=== PATIENT | female | born 1985 | race Caucasian/White ===

== ENCOUNTER 2024-09-04 12:17 | Emergency (ER) | payer BC, SELFPAY ==
[2024-09-04 12:24] VITALS: BP 146/84; PULSE 85; RESP 18; TEMP 37.1; O2SAT 98
--- NOTE | 2024-09-04 12:40 | ED.GENADULT ---
HPI - General Adult General Chief complaint: Abdominal Pain Stated complaint: Abdominal pain Time Seen by Provider: 09/04/24 12:19 Source: patient Mode of arrival: ambulatory Limitations: no limitations History of Present Illness HPI narrative: 39-year-old female presenting today with abdominal pain for 2 months. Patient is located in the epigastric region does not radiate. The pain is constant all day long. It makes her have a slightly decreased appetite. But she continues to eat regularly. She denies any weight loss. The pain generally does not get worse after she eats but she does continue to feel significant discomfort all day long. She has 1 loose stool daily. No urinary symptoms such as increased frequency, urgency or dysuria. She denies any fevers or chills. She denies any epigastric bloating. She states that she vomits a small amount of bile on most mornings because she feels quite nauseated when she wakes up. She describes burning in her chest throughout the day and a sore throat in the morning. The patient does drink 10 beers per day. Drinks 1 large cup of coffee in the morning and decaffeinated bubble water in the afternoon. Denies any tobacco use. 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 Past medical history significant for rheumatoid arthritis and anxiety. Past surgical history significant for a tonsillectomy. Related Data Home Medications ?Medication ?Instructions ?Recorded ?Confirmed etanercept 25 mg/0.5 mL 25 mg subcut QWEEK 02/09/23 09/04/24 subcutaneous solution (Enbrel) cholecalciferol (vitamin D3) 25 25 mcg PO DAILY 09/04/24 09/04/24 mcg (1,000 unit) capsule fluoxetine 40 mg capsule 40 mg PO DAILY 09/04/24 09/04/24 Previous Rx's ?Medication ?Instructions ?Recorded azithromycin 250 mg tablet See Rx Instructions PO .COMPLEX #6 02/09/23 tabs Allergies Allergy/AdvReac Type Severity Reaction Status Date / Time codeine AdvReac Intermediate cough Verified 02/09/23 18:16 Review of Systems Status of ROS: Reports: 10 or more systems reviewed and unremarkable except as noted in History and below PFSH PFS Social History Smoking Status: Never smoker Exam Narrative: Exam Narrative: Well-nourished well-developed patient in no acute distress. Alert and oriented. Answers questions appropriately. Mood and affect are appropriate. Thoughts are goal oriented and rational. No tangential or magical thinking noted. Patient speaks in full sentences without needing to catch her breath. HEENT: Normocephalic atraumatic. Pupils are equally round reactive to light. Extraocular muscles are intact. Conjunctivae are moist without any icterus noted. Moist mucous membranes. Posterior pharynx is normal. Neck is soft without any lymphadenopathy or thyromegaly. No masses are appreciated. Cardiovascular: Heart is regular rate and rhythm S1 and S2 are present without any murmurs. Lungs: Clear to auscultation bilaterally no wheezes rhonchi or rales are appreciated. Patient takes deep breaths without any discomfort. Abdomen: Soft and nondistended with normal bowel sounds. No guarding or rebound. No masses or organomegaly appreciated. She does have some mild epigastric tenderness. Negative Morton sign. Extremities: Bilateral lower extremities are without edema. Skin: Well perfused without any obvious rashes. Const: Vital Signs, click to edit/add: Vital Signs - 24 hr 09/04/24 12:24 Temperature 98.8 F Pulse Rate [Pulse Oximeter] 85 Respiratory Rate 18 Blood Pressure [Ri ght Upper Arm] 146/84 H Pulse Oximetry 98 Oxygen Delivery Me thod Room Air Course Vital Signs Vital signs: Initial Vital Signs Temperature 98.8 F 09/04/24 12:24 Temperature Source Temporal Artery Scan 09/04/24 12:24 Pulse Rate 85 09/04/24 12:24 Respiratory Rate 18 09/04/24 12:24 Blood Pressure 146/84 H 09/04/24 12:24 Blood Pressure Mean 104 09/04/24 12:24 Pulse Oximetry 98 09/04/24 12:24 Oxygen Delivery Method Room Air 09/04/24 12:24 Vital Signs Temperature 98.8 F 09/04/24 12:24 Pulse Rate 85 09/04/24 12:24 Respiratory Rate 18 09/04/24 12:24 Blood Pressure 146/84 H 09/04/24 12:24 Pulse Oximetry 98 09/04/24 12:24 Oxygen Delivery Method Room Air 09/04/24 12:24 Temperature 98.8 F 09/04/24 12:24 Pulse Rate 85 09/04/24 12:24 Respiratory Rate 18 09/04/24 12:24 Blood Pressure 146/84 H 09/04/24 12:24 Pulse Oximetry 98 09/04/24 12:24 Oxygen Delivery Method Room Air 09/04/24 12:24 Medical Decision Making MDM Narrative Medical decision making narrative: 39-year-old female with abdominal pain likely caused by gastric ulcer versus gastritis versus PUD. 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 Will start the patient on omeprazole daily and famotidine p.r.n. Discussed behavioral changes including not eating at night, stopping alcohol use, cutting back on caffeine. Discussed dietary changes. Discharge Plan Discharge Clinical Impression: Gastritis Patient Disposition: Home, Self-Care Condition: Stable Additional Instructions: Your abdominal pain is likely caused by an inflammation of the lining of the stomach or even an ulcer in the lining of the stomach. In order to treated we need to decrease the amount of acid inside of the stomach and give your stomach time to get better. In order to do this you will need to cut out alcohol use, cut back on caffeine use. Foods to avoid include ascitic fluids such as citrus fruits, tomatoes, caffeine and alcohol. Also avoid spicy food. Recommend not eating anything after 7:00 p.m. at night. You will start a daily omeprazole tablet. This can be purchased [id number]. You should also start taking Zantac as needed (this can also be purchased [id number]). This can be taking up to 2 times per day if you are having discomfort. Hopefully, you will not need to take this after a couple of weeks of daily omeprazole. You should take daily omeprazole for at least 6 weeks. Recommend you follow-up with your primary care provider in approximately 2 weeks to see how you are doing. If you are not improving, you may need further testing. I would also recommend following up with your primary care provider if you are having a hard time abstaining from alcohol use. Prescriptions: No Action Enbrel 25 mg/0.5 mL solution 25 mg subcut QWEEK azithromycin 250 mg tablet See Rx Instructions PO .COMPLEX Qty: 6 0RF Rx Instructions: For 250 mg dose pack: take 500 mg today (day 1), then 250 mg for 4 days (days 2-5) PO fluoxetine 40 mg capsule 40 mg PO DAILY cholecalciferol (vitamin D3) 25 mcg (1,000 unit) capsule 25 mcg PO DAILY Follow Up/Referrals: Vernell West DO [Primary Care Provider] - Stand Alone Forms: [employer] Info Instructions
== END 2024-09-04 13:00 | disposition home or self-care (01) ==
LOC: ED 12:55
PROVIDERS: Emergency Provider Family Medicine; PCP Family Medicine
DX: K29.70 Gastritis, unspecified, without bleeding (principal)
CPT/HCPCS: 99282; 99283